=== PATIENT | female | born 1970 | race Caucasian/White ===

== ENCOUNTER 2016-08-26 16:39 | Emergency (ER) | payer OTHER ==
[~2016-08-26] VITALS: Ht 172.7 cm; Wt 52.3 kg
[~2016-08-26 16:39] MED LIST: ACET-1256 PO; ONDA4TAB7 SL
[2016-08-26 16:41] VITALS: TEMP 36.8; Ht 172.7 cm; Wt 52.3 kg
[2016-08-26] MEDS ORDERED: OXYCODONE HCL IR 5 MG TAB (IMMEDIATE RELEASE) PO STA (17:20)
--- NOTE | 2016-08-26 17:37 | EMERGENCY ROOM VISIT NOTE ---
History First contact with patient: 17:10 Chief Complaint: BACK PAIN Stated Complaint: BACK PAIN History of Present Illness The patient is a 45 year old female who presents to the Emergency Room with complaints of low back pain. The patient states that she has had pain in the low back for 3 days. She states the pain is in the right side of the low back. The pain is the worst with any bending or movement. She states that when she is standing still she has no pain. She rates her discomfort a 10/10. She denies any fevers. She denies any loss of bowel or bladder control. She denies any leg pain, numbness or weakness. The patient has a history of arthritis in her back. The patient states she was treated for urinary tract infection a few months ago. She states that those symptoms resolved and this feels different. She has not tried anything to alleviate the pain. Review of Systems A 10 system review of systems was completed with positives and pertinent negatives listed in the HPI. Past Medical/Surgical History Patient denies Social History Smoking Status: Current Every Day Smoker Current/Historical Medications Scheduled Sulfa/Trimethoprim (Bactrim Ds 800MG/160MG), 1 TAB PO BID Scheduled PRN Oxycodone/Acetaminophen 5MG/325MG (Percocet 5MG/325MG), 1 TAB PO Q4H PRN for Pain Allergies Coded Allergies: No Known Allergies (Unverified , 08/26/16) Physical Exam Vital Signs Date Time Temp Pulse Resp B/P Pulse Ox O2 Delivery O2 Flow Rate FiO2 08/26/16 18:55 82 16 119/66 96 08/26/16 18:38 82 16 119/66 96 Room Air 08/26/16 16:41 36.8 86 18 99/67 97 Room Air Physical Exam VITALS: Vitals are noted on the nurse's note and reviewed by myself. Vital signs stable. GENERAL: This is a 45-year-old female, in no acute distress, nondiaphoretic, well-developed well-nourished. SKIN: The skin was without rashes, erythema, edema, or bruising. There is no tenting of the skin. Capillary reflex less than 2 seconds. HEAD: Normocephalic atraumatic. EARS: The external ears are normal in appearance EYES: Pupils equal round and reactive to light and accommodation. Conjunctivae without injection, sclerae without icterus. Extraocular movements intact. NOSE: Patent, turbinates without inflammation or discharge. MOUTH: Mucous membranes moist. Tonsils are not enlarged. Pharynx without erythema or exudate. Uvula midline. Airway patent. Tongue does not deviate. NECK: Supple without nuchal rigidity. No JVD. HEART: Regular rate and rhythm without murmurs gallops or rubs. LUNGS: Clear to auscultation bilaterally without wheezes, rales or rhonchi. No retractions or accessory muscle use. ABDOMEN: Positive bowel sounds x 4. Soft, nontender, without masses or organomegaly. MUSCULOSKELETAL: No muscle atrophy, erythema, or edema noted. Full range of motion without joint tenderness in all extremities. Normal gait. Strength 5/5 throughout. NEURO: Patient was alert and oriented to person place and time. Normal sensation to light and sharp touch. Deep tendon reflexes 2+ throughout. No focal neurological deficits. Medical Decision & Procedures Laboratory Results Test 08/26/16 17:30 Urine Color YELLOW Urine Appearance CLOUDY (CLEAR) Urine pH 5.5 (4.5-7.5) Urine Specific [place] 1.020 (1.000-1.030) Urine Protein NEG (NEG) Urine Glucose (UA) NEG (NEG) Urine Ketones NEG (NEG) Urine Occult Blood 2+ (NEG) Urine Nitrite POS (NEG) Urine Bilirubin NEG (NEG) Urine Urobilinogen NEG (NEG) Urine Leukocyte Esterase MODERATE (NEG) Urine WBC (Auto) 10-30 /hpf (0-5) Urine RBC (Auto) 0-4 /hpf (0-4) Urine Hyaline Casts (Auto) 5-10 /lpf (0-5) Urine Epithelial Cells (Auto) >30 /lpf (0-5) Urine Bacteria (Auto) 4+ (NEG) Medications Administered Medications (Trade) Dose Ordered Sig/Petey Route Start Time Stop Time Status Last Admin Dose Admin Oxycodone HCl (Roxicodone Immediate Rel Tab) 5 mg NOW STAT PO 08/26/16 17:20 08/26/16 17:21 DC 08/26/16 17:24 5 MG ED Course The patient was seen and examined. Previous visits were reviewed. The patient is afebrile. X-ray of the lumbar spine does not reveal any obvious abnormality. The patient does appear to have a urinary tract infection. The patient is afebrile and nontoxic in appearance. She is not vomiting. The patient will be treated with Bactrim for the urinary tract infection. The back pain seems to be unrelated to the urinary tract infection and is primarily associated with bending and movement. She does not have any back pain at rest. She does not have any neurologic deficit on exam or by history. The patient was given 1 Percocet in the emergency department with good improvement in her back pain. She'll be given a prescription for Percocet. She should return to the ER with any worsening symptoms. Otherwise, she should follow-up with her family doctor for further evaluation and management. The patient was also seen and examined by Dr. Purcell who agrees with the assessment and treatment plan. Medical Decision DIFFERENTIAL DIAGNOSIS: Lumbar strain, degenerative disc disease, spondylolisthesis, herniated disc, spinal stenosis, osteoporosis, fracture, cauda equina syndrome, neoplasm, infection, inflammatory arthritis, among others. [place] Drug Monitoring Program Search Results: patient reviewed within database, no issues identified Impression Primary Impression: Urinary tract infection Additional Impression: Low back pain Departure Information Dispostion Home / Self-Care Condition GOOD Prescriptions Sulfa/Trimethoprim (Bactrim Ds 800MG/160MG) Tab 1 TAB PO BID for 7 Days, #14 TAB Prov: Lora Avalos PA-C 08/26/16 Oxycodone/Acetaminophen 5MG/325MG (PERCOCET 5MG/325MG) Tab 1 TAB PO Q4H Y for Pain, #18 TAB For Initial Treatment Prov: Lora Avalos PA-C 08/26/16 Referrals No Doctor, Assigned (PCP) Patient Instructions Back Pain - [facility], [facility], Urinary Tract Infecs Women Additional Instructions Percocet 1-2 tablet every 4-6 hours as needed for worse pain. No driving or alcohol use with Percocet and do not take with Tylenol. Ibuprofen 600 mg every 6-8 hours or moderate pain Bactrim every 12 hours for 7 days for urinary tract infection Return with any fevers, loss of bowel or bladder control, numbness, tingling and weakness in the lower extremities or generalized worsening symptoms Otherwise, follow-up with your family doctor next week Problem Qualifiers Primary Impression: Urinary tract infection Urinary tract infection type: acute cystitis Hematuria presence: without hematuria Qualified Codes: N30.00 - Acute cystitis without hematuria Additional Impression: Low back pain Chronicity: acute Back pain laterality: right Sciatica presence: without sciatica Qualified Codes: M54.5 - Low back pain
[2016-08-26 17:45] LABS: URINE APPEARANCE CLOUDY (CLEAR); URINE BILIRUBIN NEG (NEG); URINE COLOR YELLOW; URINE EPITHELIAL CELL AUTO >30 /lpf (0-5); URINE NITRITE POS (NEG); URINE PH 5.5 (4.5-7.5); UROBILINOGEN NEG (NEG); ZZUR CULT IF INDIC CLEAN CATCH YES
[2016-08-26 17:52] LABS: MANUAL MICROSCOPIC REQUIRED? NO; REVIEW REQ? NO
--- NOTE | 2016-08-26 18:28 | DIAGNOSTIC IMAGING REPORT ---
LUMBAR SPINE 5 VIEWS HISTORY: low back pain COMPARISON: None. FINDINGS: There is no fracture. No subluxation. Disc spaces are relatively preserved. Small endplate osteophytes throughout the lumbar spine. IMPRESSION: No fracture or subluxation within the lumbar spine. Minimal degenerative change. Electronically signed by: Jorge Luis Kumari M.D. 08/26/2016 6:27 PM Dictated Date/Time: 08/26/2016 6:25 PM
[2016-08-26] MEDS ORDERED: SULF800T23 PO (18:46)
[2016-08-26] MEDS ORDERED: OXYC-57 PO (18:46)
[2016-08-26 18:55] VITALS: BP 119/66; PULSE 82; O2SAT 96
[2016-12-29] MEDS ORDERED: TRAM-10 PO (17:00)
== END 2016-08-26 18:58 | disposition home or self-care (01) ==
LOC: C.EDB 16:40 → C.EDD 18:58
DX: N30.00 Acute cystitis without hematuria (principal); M54.5 Low back pain; M47.9 Spondylosis, unspecified; F17.200 Nicotine dependence, unspecified, uncomplicated

== ENCOUNTER 2017-04-29 23:36 | Emergency (ER) | payer OTHER ==
[~2017-04-29] VITALS: Ht 172.7 cm; Wt 55.4 kg
[~2017-04-29 23:36] MED LIST changes: -ACET-1256 PO; -ONDA4TAB7 SL; +TRAM-10 PO
[2017-04-29 23:41] VITALS: BP 100/66; PULSE 81; TEMP 36.8; O2SAT 98; Ht 172.7 cm; Wt 55.4 kg
--- NOTE | 2017-04-30 00:12 | EMERGENCY ROOM VISIT NOTE ---
History Report prepared by Latasha: Gloria Pinto Under the Supervision of: Dr. Nicho Puckett M.D. First contact with patient: 00:05 Chief Complaint: SHOULDER PAIN Stated Complaint: SHOULDER PAIN History of Present Illness The patient is a 46 year old female who presents to the Emergency Room with complaints of constant left shoulder pain beginning a month and a half ago. She reports that the pain also radiates down her arm, and that movement exacerbates the pain. She denies injuring it and denies having pain in her other shoulder. She reports that she went to the hospital when she was in [place], and was told she had a rotator cuff injury. The patient denies chest pain, shortness of breath, syncope, and rashes. The patient states that she smokes. Source of History: patient Onset: month and a half ago Position: other (left shoulder) Timing: constant Modifying Factors (Worsening): movement Associated Symptoms: No chest pain, No SOB, No rash Review of Systems See HPI for pertinent positives & negatives. A total of 6 systems reviewed and were otherwise negative. Past Medical & Surgical Medical Problems: (1) Asthma W/O Status Asthm (2) Lumbago (3) Pyelonephritis Nos (4) Tobacco Use Disorder Surgical Problems: (1) No history of previous surgery Family History FH: cancer Social History Smoking Status: Current Every Day Smoker Alcohol Use: none Marital Status: single Housing Status: lives alone Occupation Status: employed Current/Historical Medications Scheduled Methylprednisolone (Medrol Dosepak), 1 PKT PO UD Allergies Coded Allergies: No Known Allergies (Unverified , 04/30/17) Physical Exam Vital Signs Date Time Temp Pulse Resp B/P (MAP) Pulse Ox O2 Delivery O2 Flow Rate FiO2 04/29/17 23:41 36.8 81 16 100/66 98 Room Air Physical Exam GENERAL: Patient is well appearing and in minimal distress. HEENT: No acute trauma, normocephalic atraumatic, mucous membranes moist, no nasal congestion, no scleral icterus. NECK: No stridor, no adenopathy, no meningismus, trachea is midline. LUNGS: No dyspnea. Clear to auscultation and equal bilaterally. No wheeze, no rhonchi. HEART: Regular rate and rhythm. No murmurs, rubs, gallops appreciated. ABDOMEN: Soft, nontender, bowel sounds positive, no masses appreciated, no peritonitis. BACK: No midline tenderness, no CVA tenderness EXTREMITIES: Tenderness to palpation of anterior left shoulder. Pain with range of motion and abducting. No distal neurologic deficits. Normal vascular exam. No swelling. NEUROLOGIC: Alert and oriented, no acute motor or sensory deficits, no focal weakness, cranial nerves grossly intact. SKIN: No rash, no jaundice, no diaphoresis. Medical Decision & Procedures ER Provider Diagnostic Interpretation: X-ray 4 view Left Shoulder: No fracture, no dislocation, no soft tissue swelling. Medications Administered Medications (Trade) Dose Ordered Sig/Petey Route Start Time Stop Time Status Last Admin Dose Admin Prednisone (PredniSONE TAB) 60 mg NOW STAT PO 04/30/17 00:47 04/30/17 00:48 DC 04/30/17 01:09 60 MG ED Course 0010: The patient was evaluated in room B3B. A complete history and physical exam was performed. 0040: The patient is stable. She does not want shots, but is willing to try narcotics. 0047: Ordered Prednisone 60 mg PO. 0100: Reevaluated the patient. Discussed results and discharge instructions: She verbalized understanding and agreement. The patient is ready for discharge. Medical Decision Differential: Fracture, Dislocation, Cellulitis, Septic Joint, Ligamentous Injury, Effusion, DVT, amongst other pathologies entertained. 46 yr old female with left shoulder pain for last 1-2 months. Already evaluated in ED in [place] where told likely rotator cuff issue though she notes unable to [place] Rx [place], thus came here 2 [place]. Exam consistent with MSK issue as clearly worse with movement. Would suspect some tendonitis given point TTP though could be rotator cuff impingement. Will need to see PCP, and I offered to help set this up though she declines and states will do on her own. Should try some steroids to see if this improves things. Discussed possible need for PT/Ortho evaluation/treatment. Reviewed symptoms to return. No evidence of DVT, septic joint nor cellulitis. No neck pain nor is symptoms consistent with cervical radiculopathy. Medication Reconcilliation Current Medication List: was personally reviewed by me Blood Pressure Screening Patient's blood pressure: Normal blood pressure Impression Primary Impression: Left shoulder pain Scribe Attestation The scribe's documentation has been prepared under my direction and personally reviewed by me in its entirety. I confirm that the note above accurately reflects all work, treatment, procedures, and medical decision making performed by me. Departure Information Dispostion Home / Self-Care Prescriptions Methylprednisolone (MEDROL DOSEPAK) 4 Mg [place] 1 PKT PO UD for 6 Days, #1 PKT Prov: Nicho Puckett M.D. 04/30/17 Referrals Primary Care Provider Forms HOME CARE DOCUMENTATION FORM, IMPORTANT VISIT INFORMATION Patient Instructions ED Shoulder Pain SO, My [facility]
[2017-04-30] MEDS ORDERED: METH4PAK PO (00:48)
--- NOTE | 2017-04-30 07:43 | DIAGNOSTIC IMAGING REPORT ---
L SHOULDER MIN 2 VIEWS ROUTINE HISTORY: 46 years-old Female left shoulder pain acute left shoulder pain without reported trauma COMPARISON: None available TECHNIQUE: 3 views of the left shoulder FINDINGS: Mild acromioclavicular osteoarthritis. No acute fracture or dislocation. Imaged lung aguila and soft tissues are unremarkable. IMPRESSION: No acute fracture or dislocation. The above report was generated using voice recognition software. It may contain grammatical, syntax or spelling errors. Electronically signed by: Ross Ogden M.D. 04/30/2017 7:41 AM Dictated Date/Time: 04/30/2017 7:40 AM
== END 2017-04-30 01:16 | disposition home or self-care (01) ==
LOC: C.EDB 23:37
DX: M25.512 Pain in left shoulder (principal); J45.909 Unspecified asthma, uncomplicated; F17.210 Nicotine dependence, cigarettes, uncomplicated; Z80.9 Family history of malignant neoplasm, unspecified

== ENCOUNTER 2017-08-02 11:56 | Emergency (ER) | payer OTHER ==
[~2017-08-02] VITALS: Ht 172.7 cm; Wt 56.2 kg
[2017-08-02 12:00] VITALS: Ht 172.7 cm; Wt 56.2 kg
[2017-08-02 12:56] LABS: BASO % 0.2 %; BASO ABS # 0.01 K/uL (0-0.2); EOS % 0.2 %; EOS ABS # 0.01 K/uL (0-0.5); HEMOGLOBIN 15.3 g/dL (12.0-16.0); IG# 0.01 K/uL (0.00-0.02); LYMPH % 13.3 %; LYMPH ABS # 0.61 K/uL (1.2-3.4); MEAN CELL VOLUME 90.2 fL (80-100); MEAN CORPUSCULAR HEMOGLOBIN 31.4 pg (25-34); MEAN CORPUSCULAR HGB CONC 34.8 g/dl (32-36); MEAN PLATELET VOLUME 9.8 fL (7.4-10.4); MONO % 19.1 %; MONO ABS # 0.88 K/uL (0.11-0.59); NEUT ABS # 3.08 K/uL (1.4-6.5); PLATELET COUNT 182 K/uL (130-400); RED CELL DISTRIBUTION WIDTH CV 13.5 % (11.5-14.5); RED CELL DISTRIBUTION WIDTH SD 44.7 fL (36.4-46.3)
[2017-08-02 13:13] LABS: PTT PATIENT 29.3 SECONDS (21.0-31.0)
[2017-08-02 13:15] LABS: ALBUMIN 3.9 gm/dl (3.4-5.0); ALT/SGPT 24 U/L (12-78); AST/SGOT 15 U/L (15-37); BLOOD UREA NITROGEN 13 mg/dl (7-18); CALCIUM 8.6 mg/dl (8.5-10.1); CARBON DIOXIDE 24 mmol/L (21-32); CREATININE 1.01 mg/dl (0.60-1.20); GLUCOSE 102 mg/dl (70-99); POTASSIUM 3.9 mmol/L (3.5-5.1); SODIUM 135 mmol/L (136-145)
[2017-08-02 13:19] LABS: ALKALINE PHOSPHATASE 50 U/L (45-117); TOTAL PROTEIN 7.4 gm/dl (6.4-8.2)
--- NOTE | 2017-08-02 13:34 | DIAGNOSTIC IMAGING REPORT ---
RIBS BILATERAL WITH PA CHEST CLINICAL HISTORY: Cough, chest pain dyspnea COMPARISON STUDY: None FINDINGS: No acute cortical abnormality of the ribs. chest demonstrates lungs to be clear. No evidence pneumothorax. IMPRESSION: 1. Negative ribs. 2. Negative chest. The above report was generated using voice recognition software. It may contain grammatical, syntax or spelling errors. Electronically signed by: Douglas Pratt M.D. 08/02/2017 1:33 PM Dictated Date/Time: 08/02/2017 1:32 PM
--- NOTE | 2017-08-02 13:45 | EMERGENCY ROOM VISIT NOTE ---
History First contact with patient: 12:04 Chief Complaint: RIB PAIN Stated Complaint: RIBS HURT History of Present Illness The patient is a 46 year old female who presents to the Emergency Room via private vehicle accompanied by female with complaints of ""ribs hurt". The patient states that for the past 2 days she has had a dry cough, as well as pain to the bilateral ribs which is worse with coughing. She notes it is mostly in the front. She states that when she coughs the rib pain is exacerbated and she rates the pain as a 7/10. She also notes a headache with the cough. She denies any chest pain, or history of blood clots. Review of Systems A complete 10-point Review of Systems was discussed with the patient, with pertinent positives and negatives listed in the History of Present Illness. All remaining Review of Systems questions can be considered negative unless otherwise specified. Past Medical/Surgical History Medical Problems: (1) Asthma W/O Status Asthm (2) Lumbago (3) Pyelonephritis Nos (4) Tobacco Use Disorder Surgical Problems: (1) No history of previous surgery Family History FH: cancer Social History Smoking Status: Current Every Day Smoker Alcohol Use: none Marital Status: single Housing Status: lives alone Occupation Status: employed Current/Historical Medications Scheduled PRN Hydrocodone W/ Homatropine (Hycodan 5/1.5MG 5 Ml), 5 ML PO Q6 PRN for Cough Oxycodone Ir (Roxicodone Ir), 1 TAB PO Q6 PRN for Pain Physical Exam Vital Signs Date Time Temp Pulse Resp B/P (MAP) Pulse Ox O2 Delivery O2 Flow Rate FiO2 08/02/17 15:15 36.8 91 20 115/72 96 08/02/17 14:35 91 20 115/72 96 Room Air 08/02/17 14:04 93 08/02/17 12:39 107 08/02/17 12:00 36.8 112 18 112/70 96 Room Air Physical Exam VITAL SIGNS - Vital signs and nursing notes were reviewed. Stable. Tachycardic. GENERAL -46-year-old female appearing her stated age who is in no acute distress. Communicates well with provider and answers questions appropriately. SKIN - Without rashes. No petechial rashes. HEAD - NC/AT. EYES - Sclera anicteric. EARS - No deformities of external structures noted on gross examination bilaterally. No pain elicited with palpation of the tragus bilaterally. External auditory canals without discharge or otorrhea. Tympanic membranes pearly hogan without retraction or bulging. No fluid or purulent material visualized behind the TM. Handle of malleus, umbo, cone of light, pars tensa/ flaccid all easily visualized. NOSE - Midline and without cyanosis. No epistaxis or purulent drainage noted. MOUTH/OROPHARYNX - Without perioral cyanosis. LUNGS - Chest wall symmetric without accessory muscle use, intercostals retractions, or central cyanosis. Normal vesicular breath sounds CTA B/L. No wheezes, rales, or rhonchi appreciated. CARDIAC - RRR with S1/S2. No murmur, rubs, or gallops appreciated. MUSCULOSKELETAL: There is tenderness to palpation of the patient's bilateral anterior ribs. Medical Decision & Procedures ER Provider Diagnostic Interpretation: RIBS BILATERAL WITH PA CHEST CLINICAL HISTORY: Cough, chest pain dyspnea COMPARISON STUDY: None FINDINGS: No acute cortical abnormality of the ribs. chest demonstrates lungs to be clear. No evidence pneumothorax. IMPRESSION: 1. Negative ribs. 2. Negative chest. The above report was generated using voice recognition software. It may contain grammatical, syntax or spelling errors. Electronically signed by: Douglas Pratt M.D. 08/02/2017 1:33 PM Dictated Date/Time: 08/02/2017 1:32 PM Laboratory Results 08/02/17 12:35 Red Blood Count 4.88, Mean Corpuscular Volume 90.2, Mean Corpuscular Hemoglobin 31.4, Mean Corpuscular Hemoglobin Concent 34.8, Mean Platelet Volume 9.8, Neutrophils (%) (Auto) 67.0, Lymphocytes (%) (Auto) 13.3, Monocytes (%) (Auto) 19.1, Eosinophils (%) (Auto) 0.2, Basophils (%) (Auto) 0.2, Neutrophils # (Auto ) 3.08, Lymphocytes # (Auto) 0.61, Monocytes # (Auto) 0.88, Eosinophils # (Auto ) 0.01, Basophils # (Auto) 0.01 08/02/17 12:35 Test 08/02/17 12:35 White Blood Count 4.60 K/uL (4.8-10.8) Red Blood Count 4.88 M/uL (4.2-5.4) Hemoglobin 15.3 g/dL (12.0-16.0) Hematocrit 44.0 % (37-47) Mean Corpuscular Volume 90.2 fL (80-100) Mean Corpuscular Hemoglobin 31.4 pg (25-34) Mean Corpuscular Hemoglobin Concent 34.8 g/dl (32-36) Platelet Count 182 K/uL (130-400) Mean Platelet Volume 9.8 fL (7.4-10.4) Neutrophils (%) (Auto) 67.0 % Lymphocytes (%) (Auto) 13.3 % Monocytes (%) (Auto) 19.1 % Eosinophils (%) (Auto) 0.2 % Basophils (%) (Auto) 0.2 % Neutrophils # (Auto) 3.08 K/uL (1.4-6.5) Lymphocytes # (Auto) 0.61 K/uL (1.2-3.4) Monocytes # (Auto) 0.88 K/uL (0.11-0.59) Eosinophils # (Auto) 0.01 K/uL (0-0.5) Basophils # (Auto) 0.01 K/uL (0-0.2) RDW Standard Deviation 44.7 fL (36.4-46.3) RDW Coefficient of Variation 13.5 % (11.5-14.5) Immature Granulocyte % (Auto) 0.2 % Immature Granulocyte # (Auto) 0.01 K/uL (0.00-0.02) Prothrombin Time 10.2 SECONDS (9.0-12.0) Prothromb Time International Ratio 1.0 (0.9-1.1) Activated Partial Thromboplast Time 29.3 SECONDS (21.0-31.0) Partial Thromboplastin Ratio 1.1 D-Dimer 310 ug/L FEU (0-500) Anion Gap 6.0 mmol/L (3-11) Est Creatinine Clear Calc Drug Dose 61.1 ml/min Estimated GFR () 76.8 Estimated GFR (Non- 66.2 BUN/Creatinine Ratio 13.0 (10-20) Calcium Level 8.6 mg/dl (8.5-10.1) Total Bilirubin 0.3 mg/dl (0.2-1) Aspartate Amino Transf (AST/SGOT) 15 U/L (15-37) Alanine Aminotransferase (ALT/SGPT) 24 U/L (12-78) Alkaline Phosphatase 50 U/L (45-117) Troponin I < 0.015 ng/ml (0-0.045) Total Protein 7.4 gm/dl (6.4-8.2) Albumin 3.9 gm/dl (3.4-5.0) Globulin 3.5 gm/dl (2.5-4.0) Albumin/Globulin Ratio 1.1 (0.9-2) Medications Administered Medications (Trade) Dose Ordered Sig/Petey Route Start Time Stop Time Status Last Admin Dose Admin Ketorolac Tromethamine (Toradol Inj) 30 mg NOW STAT IV 08/02/17 13:50 08/02/17 13:52 DC 08/02/17 14:35 30 MG Albuterol (Ventolin Hfa Inhaler) 1 puffs NOW STAT INH 08/02/17 13:50 08/02/17 13:52 DC 08/02/17 14:34 1 PUFFS Hydrocodone Bit/ Homatropine Methylb (Hycodan Elix Homepack 5/1.5MG/ 5ML) 1 homepack UD STAT PO 08/02/17 13:50 08/02/17 13:52 DC 08/02/17 14:34 1 HOMEPACK Medical Decision Patient was seen and evaluated as above. She was started today with bilateral anterior rib pain. She is tachycardic. Unfortunately the PERC cannot be utilized given her tachycardia. I suspect she likely has a viral URI causing her cough, however given her lack of other constitutional symptoms believe that further intervention and workup is important. She expresses concern/anxiety over establishing IV access. I initially informed her that I could provide her with sublingual Ativan. After obtaining a thorough history and physical examination IV access was initiated, and the above workup was performed. I was not able to order the Ativan prior to the patient receiving the IV however it was noted that she did well. The female at bedside notes that she did appear to be a little bit of pain, but the patient overall appears to be okay. Bedside EKG was performed and reveals normal sinus rhythm, short MA. Troponin negative. White blood cell count slightly low at 4.6. No anemia noted. Coags normal. D-dimer 310. Metabolic panel reveals no evidence of kidney or liver failure. Sodium low at 135. X-ray was obtained of bilateral ribs and chest. No fracture. I suspect she likely is experiencing inflammation of the cartilage between the ribs. She was given Toradol, albuterol inhaler and Hycodan cough syrup. With the absence of any infection or fracture I believe that clinically with reproducible anterior rib pain this must be from the cartilage. She is to follow with family doctor. She notes that she does not have one. I asked if she would like help obtaining one she notes that she will be able to obtain one on her own. She appears stable for outpatient management. She was educated upon management, educated upon worrisome symptoms in which to return, had questions as per the discharge, and was discharged home in good condition. She will be given a short prescription of oxycodone for the rib pain as well as Hycodan cough syrup. I educated her specifically upon not taking the medication together as these can increase sedation and respiratory depression. I informed her to only take one or the other. She verbalized understanding. No red flags the [employer] drug monitoring system. Medication list reviewed. Blood pressure Normal In the evaluation and treatment of this patient, the following differential diagnoses were considered: Rib Fracture, Rib Contusion, Hemothorax, Pneumothorax , Pneumonia, Pleural Effusion. Impression Primary Impression: Rib pain Additional Impression: Cough Departure Information Dispostion Home / Self-Care Condition GOOD Prescriptions Hydrocodone W/ Homatropine (HYCODAN 5/1.5MG 5 ML) 1 Syp Syp 5 ML PO Q6 Y for Cough, #60 ML Prov: Wilfrido Mike PA-C 08/02/17 Oxycodone Ir (Roxicodone Ir) 5 Mg Tab 1 TAB PO Q6 Y for Pain, #12 TAB For Initial Treatment Prov: Wilfrido Mike PA-C 08/02/17 Referrals No Doctor, Assigned (PCP) Patient Instructions [facility] Additional Instructions You have been treated in the Emergency Department for Rib pain and cough. You have received pain medicine in the emergency department which impairs your ability to operate a vehicle. It is illegal for you to drive after receiving these medicines. You have been prescribed Oxy IR to be used for pain control. This is a narcotic medication. You cannot drive or consume alcohol while on this medicine. This medicine should only be used for pain that cannot be controlled with over-the- counter pain medicines. Please be careful as this medication cough syrup can further sedate you and slow breathing. Please only take a pain med if you need this. Please do not take it with the cough medicine. Hycodan cough syrup by mouth every 6 hours. This is for your cough. Please do not take this with the pain medication oxycodone as this can further sedate to and slow breathing. For pain control, you can use the following [id number] medicines - Regular strength (325mg/tab) Tylenol (acetaminophen) 2 tabs every 4-6 hours as needed. Do not exceed 12 tablets in a 24 hour period. Avoid taking more than 3 grams (3000 mg) of Tylenol per day. This includes any other sources of acetaminophen you may take on a regular basis. - Regular strength (200 mg/tab) Advil (ibuprofen) 1-2 tabs every 4-6 hours as needed. Do not exceed a dose of 3200 mg per day. If this is an acute injury, ice can be applied to the area of pain for the first 3 days to help decrease pain and inflammation. After the first 3 days, a heating pad can be used over the area for continued soothing relief. To minimize your discomfort, you can hug a pillow while coughing or sneezing. Additionally, you should continue to force yourself to take nice, deep breaths. Full expansion of the lungs is necessary to prevent the accumulation of fluid in the lung tissue and development of pneumonia. You should schedule a follow-up appointment in 2-3 days with your Primary Care Provider for further evaluation and treatment of your rib pain. Return to the Emergency Department if your current symptoms worsen despite treatment course outlined above, or if you develop any of the following symptoms : intractable pain despite aforementioned treatment course, development of a wet cough, bloody cough, fever, chills, or increased shortness of breath. Problem Qualifiers
[2017-08-02] MEDS ORDERED: ALBUTEROL HFA 8 GM INHALER INH STA (13:50)
[2017-08-02] MEDS ORDERED: KETOROLAC TROMETHAMINE 30 MG/ML VIAL IV STA (13:50)
[2017-08-02] MEDS ORDERED: HYCODAN 60ML BOTTLE HOMEPACK PO STA (13:50)
[2017-08-02] MEDS ORDERED: HYDR5SYP11 PO (14:52)
[2017-08-02] MEDS ORDERED: OXYC1TAB3 PO (14:52)
[2017-08-02 15:15] VITALS: BP 115/72; PULSE 91; TEMP 36.8; O2SAT 96
== END 2017-08-02 15:15 | disposition home or self-care (01) ==
LOC: C.EDB 11:57 → C.EDA 15:15
DX: R07.81 Pleurodynia (principal); R05 Cough; J45.909 Unspecified asthma, uncomplicated; F17.200 Nicotine dependence, unspecified, uncomplicated; Z87.440 Personal history of urinary (tract) infections; Z80.9 Family history of malignant neoplasm, unspecified

== ENCOUNTER 2018-03-13 10:02 | Emergency (ER) | payer OTHER ==
[~2018-03-13] VITALS: Ht 175.3 cm; Wt 54.5 kg
[2018-03-13 10:16] VITALS: BP 121/73; PULSE 85; TEMP 37.1; O2SAT 97; Ht 175.3 cm; Wt 54.5 kg
[2018-03-13] MEDS ORDERED: ELMCR TD (10:33)
[2018-03-13] MEDS ORDERED: PRED20TA2 PO (10:33)
--- NOTE | 2018-03-13 10:40 | EMERGENCY ROOM VISIT NOTE ---
ED Visit Note First contact with patient: 10:22 CHIEF COMPLAINT: Rash HISTORY OF PRESENT ILLNESS: This 47 y/o patient presents to the emergency department complaining of an itchy rash which started yesterday. The patient denies fever, chills, nausea, or loss of appetite. They deny any URI symptoms. The patient has tried rubbing alcohol. The patient states the rash is itchy and rates the discomfort as 5/10. No change in food, soap, detergents , or other environmental factors. No new medications. No weakness or numbness. The patient is concerned that a friend of her stated her house. She describes his friend as unclean. The friend appeared to have a rash that was very itchy and the patient is concerned she caught what over the friend had. She is concerned it is scabies. REVIEW OF SYSTEMS: A 6 system review of systems was completed with positives and pertinent negatives listed in the HPI. ALLERGIES: NKDA MEDICATIONS: None PMH: None SOCIAL HISTORY: lives with roommate PHYSICAL EXAM: Vital Signs: Reviewed Nurse's notes, vital signs stable. GENERAL : 47 y/o female, in no acute distress, well-developed, well-nourished. SKIN: urticarial rash on flexor surfaces of arms and lower back. Capillary refill less than 2 seconds. EMERGENCY DEPARTMENT COURSE:Will trial permethrin cream 5%. Pt instructed to take Benadryl for itching. She will Start Prednisone if Permethrin doesn't work DIAGNOSIS: Rash Current/Historical Medications Scheduled Permethrin 5% (Elimite 5%), 1 APPLN TD DAILY Prednisone (Prednisone Tab), 0 PO DAILY Allergies Coded Allergies: No Known Allergies (Unverified , 03/13/18) Vital Signs Date Time Temp Pulse Resp B/P (MAP) Pulse Ox O2 Delivery O2 Flow Rate FiO2 03/13/18 10:16 37.1 85 18 121/73 97 Room Air Departure Information Impression Primary Impression: Rash Dispostion Home / Self-Care Condition GOOD Prescriptions Prednisone (Prednisone Tab) 20 Mg Tab 0 PO DAILY, #7 TAB 2 TABS DAILY FOR 2 DAYS, THEN 1 TAB DAILY FOR 2 DAYS, THEN 1/2 TAB DAILY FOR 2 DAYS. Prov: Jamie Mixon MD 03/13/18 Permethrin 5% (Elimite 5%) 180 Appln/60 Gm Cr 1 APPLN TD DAILY, #1 TUBE Prov: Jamie Mixon MD 03/13/18 Forms WORK / SCHOOL INSTRUCTIONS, HOME CARE DOCUMENTATION FORM, IMPORTANT VISIT INFORMATION Patient Instructions Rash - [facility], My [facility], ED Scabies, Permethrin lotion Additional Instructions Apply permethrin May repeat in two weeks Take 50 mg Benadryl every 6 hours for itching May start Prednisone if no relief from Permethrin You have been examined and treated today on an emergency basis only. This is not a substitute for, or an effort to provide, complete comprehensive medical care. It is impossible to recognize and treat all injuries or illnesses in a single emergency department visit. It is therefore important that you follow up closely with your PCP. Call as soon as possible for an appointment. Thank you for your time and consideration. I look forward to speaking with you again soon. Please don't hesitate to call us if you have any questions.
== END 2018-03-13 10:46 | disposition home or self-care (01) ==
LOC: C.EDB 10:03
DX: R21 Rash and other nonspecific skin eruption (principal)